=== PATIENT | male | born 1990 | race Asian ===

== ENCOUNTER → 2022-04-03 09:35 | Outpatient (CLI) | payer BC, SELFPAY ==
[2022-04-03 11:36] LABS: COVID19 -Nasal RAPID Negative (Negative)
== END ==
PROVIDERS: Visit Provider Surgery
DX: Z20.822 Contact with and (suspected) exposure to COVID-19 (principal); Z01.812 Encounter for preprocedural laboratory examination
CPT/HCPCS: 87635; C9803

== ENCOUNTER 2022-04-04 12:44 | Day surgery (SDC) | payer BC, SELFPAY ==
[2022-03-30 07:50] VITALS: BMI 33.9
--- NOTE | 2022-04-04 | PATH_ITS ---
[facility] Accession Number: [id number] . 01 Material submitted: . thigh - LEFT THIGH MASS . 01 Diagnosis: Left Thigh, Excision: Epidermal inclusion cyst. [facility] 04/07/2022 1005 Local . 01 Electronically signed: . Kota Elise MD, Dermatopathologist NPI- [id number] . 01 Gross description: . LEFT THIGH MASS: Received in formalin is 1 fragment of head soft tissue measuring 2.0 x 2.0 x 1.6 cm. Tissue is inked. Specimen is sectioned and submitted in car sales representative sections in 1 cassette. /KRISTINA 04/05/20225 Local . 01 Pathologist provided ICD-10: L72.0 . 01 CPT . 511559 Performed at: 01 [facility] [address] [place] [address], [place], [place] [id number] MD Abilio Baez MD Phone: [phone]
[2022-04-04 13:20] VITALS: BP 107/78; PULSE 76; RESP 18; TEMP 36.6; O2SAT 98; BMI 33.9
[2022-04-04] MEDS: LACTATED RINGERS 1,000 ML 84 ML IV ×2 (13:20→14:45)
--- NOTE | 2022-04-04 14:32 | PM.PREOP ---
Pre-operative Note COVID-19 COVID-19 status: Negative Result date/Date tested (Pos, Neg/Pending): 04/04/22 Interval Note History & Physical reviewed/Exam performed by Physician: Yes Changes to H&P: No ASA Class (for procedural sedation): II
--- NOTE | 2022-04-04 15:09 | SUR.OPER ---
Supine on padded OR bed, head on pillow, arms secured on padded arm boards at <90 degrees abduction, legs uncrossed, safety belt at abdomen. Operative leg supported by pillow.
[2022-04-04] MEDS: BUPIVACAINE 0.5% W/ EPI (PF) 30 ML VIAL INJ (15:13)
--- NOTE | 2022-04-04 15:31 | PM.OP.1 ---
Operative Date/Time/Diagnoses Date of procedure: 04/04/22 Time of procedure: 15:31 Pre-op diagnosis: Left thigh mass Post-op diagnosis: same Procedure & Clinicians Procedure: Excisional biopsy of left thigh mass Same procedure as scheduled: Yes Surgeon: Minor Adrian Anesthesia Type: Local Operative Notes Procedure in detail: The patient was brought into the operating and placed on the table in the supine position. The left lateral thigh was prepped and draped in the usual fashion and a time-out was performed. Local was injected into the skin and subcutaneous adipose tissue over the mass. A 4 cm transverse incision was created over the mass. The mass appeared to be a fluid containing cyst. Additional local was injected deep to the mass as there seemed to be nerve in the vicinity of the mass. Mass was excised completely without disrupting the capsule. Additional local was injected into the deep part of the wound once the mass was out. The field was hemostatic. We then closed the skin incision in layers using multiple interrupted 3-0 Vicryl dermal sutures followed by 2 2-0 nylon mattress sutures. EBL: 10 mL Specimen: Left thigh mass which appeared to be some type of benign cyst Post-operative Condition: stable Disposition: PACU
[2022-04-04 15:50] VITALS: BP 125/93; PULSE 85; RESP 16; TEMP 37.1; O2SAT 96
--- NOTE | 2022-04-04 16:11 | SUR.PHASEII ---
1533 Patient arrives to phase II. Only local anesthetic used during procedure and no PACU needed. Patient alert/awake and resting comfortably. Denies pain.
== END 2022-04-04 14:06 | disposition home or self-care (01) ==
PROVIDERS: Referring Provider Surgery; Visit Provider Surgery
PROC: (CPT 11404; principal; 2022-04-04 14:30)
DX: L72.0 Epidermal cyst (principal); R20.8 Other disturbances of skin sensation
CPT/HCPCS: 11404

== ENCOUNTER → 2024-05-30 13:09 | Outpatient (CLI) | payer BC, SELFPAY ==
[2024-05-30 13:53] LABS: Hematocrit 47.1 % (41-53); Hemoglobin 16.2 g/dL (13.5-17.5); Mean Corpuscular HGB Conc 34.3 % (30-36); Mean Corpuscular Hemoglobin 30.2 PG (26-34); Mean Corpuscular Volume 87.9 fL (80-100); Platelet Count 306 X10^3/uL (150-400); Red Blood Cell Count 5.36 X10^6/uL (4.5-5.9); Red Cell Distribution Width 13.4 % (11.6-14.8); White Blood Cell Count 5.7 X10^3/uL (4.5-11.0)
[2024-05-30 14:10] LABS: Hemoglobin A1C% w Est Avg Glu 6.5 % (4.0-6.0)
[2024-05-30 14:15] LABS: Alanine Aminotransferase 67 IU/L (<50); Albumin 4.8 g/dL (3.5-5.0); Albumin Globulin Ratio 1.4 (1.0-2.8); Alkaline Phosphatase 41 U/L (38-126); Aspartate Aminotransferase 42 IU/L (17-59); Bilirubin Total 0.7 mg/dL (0.2-1.3); Blood Urea Nitrogen 15 mg/dL (9-20); Calcium 9.3 mg/dL (8.4-10.2); Carbon Dioxide 27 mmol/L (22-32); Chloride 103 mmol/L (98-107); Cholesterol 282 mg/dL (140-199); Estimated Glomerular Filt Rate > 60 mL/min (>60); Globulin 3.4 g/dL (1.7-4.1); Glucose 104 mg/dL (70-100); HDL Cholesterol 41 mg/dL (40-60); HEMOLYSIS 19 (0-50); Potassium 4.2 mmol/L (3.4-5.1); Sodium 139 mmol/L (137-145); Total Protein 8.2 g/dL (6.3-8.2); Triglycerides 416 mg/dL (35-150)
[2024-06-02 15:05] LABS: HIV 1 & 2 Ab/Ag 4th Gen Combo NEGATIVE (NEGATIVE); Hep C Virus Ab w/Reflex Quant NEGATIVE s/c (NEGATIVE)
== END ==
LOC: LAB 13:10
PROVIDERS: PCP Family Medicine; Referring Provider Family Medicine; Visit Provider Family Medicine
DX: E66.9 Obesity, unspecified (principal); Z13.220 Encounter for screening for lipoid disorders; Z13.1 Encounter for screening for diabetes mellitus; Z11.4 Encounter for screening for human immunodeficiency virus [HIV]; Z11.59 Encounter for screening for other viral diseases
CPT/HCPCS: 36415; 80053; 80061; 83036; 85027; 86803; 87389